=== PATIENT | male | born 1945 | race Caucasian/White ===

== ENCOUNTER 2021-07-13 07:18 | Emergency (ER) | payer MEDICARE ==
[~2021-07-13 07:18] MED LIST: AMIODARONE 150 MG/3 ML INJ IV ONE; CALCIUM CHLORIDE 1,000 MG/10 ML SYRINGE IV ONE; EPINEPHrine 1 MG/10 ML SYRINGE ONE; MAGNESIUM SULFATE 1 GM/2ML (4 MEQ/1ML) INJ ONE; SODIUM BICARB 8.4% 50 MEQ/50 ML SYRINGE IV ONE
[2021-07-13] MEDS ORDERED: NORepinephrine/NS 8 MG-250 ML 8 MG/250 ML INFUS..BTL IV ONE (07:29)
[2021-07-13] MEDS ORDERED: MINERAL OIL/PETROLATUM, WHITE OPHTH OINT 3.5 GM OU PRN (07:46)
[2021-07-13] MEDS ORDERED: DOPamine 800 MG/D5W 250ML 800 MG/250 ML BAG IV ONE (07:46)
[2021-07-13] MEDS ORDERED: LIP THERAPY VASELINE TP PRN (07:46)
[2021-07-13] MEDS ORDERED: SODIUM CHLORIDE 0.9% 1000 ML IV SOLN IV ONE (07:48)
[2021-07-13] MEDS ORDERED: CEFEPIME/NS 2 GM/100 ML 2 GM/100 ML BAG IV ONE (07:48)
[2021-07-13] MEDS ORDERED: NORepinephrine/NS 8 MG-250 ML 8 MG/250 ML INFUS..BTL IV SCH (08:00)
[2021-07-13] MEDS ORDERED: VANCOMYCIN PHARMACY TO DOSE IV SCH (08:00)
[2021-07-13] MEDS ORDERED: DOPamine 800 MG in DEXTROSE 5% IN WATER 230 ML IV ONE (08:00)
--- NOTE | 2021-07-13 08:04 | Emergency Department Report ---
ED CPR HPI - General Stated Complaint: CARDIAC ARREST Time Seen by Provider: 07/13/21 07:45 Source: family, EMS Limitations: Altered Mental Status - History of Present Illness Initial Comments: Chief complaint: Cardiac arrest HPI: This is a 75-year-old male with history of colon polyps and arthritis who presents in cardiac arrest via EMS. Daughter gave me history per phone. Phone #[phone]. Patient had flulike symptoms for the last week with fever shortness of breath cough. Self treated at home with Tylenol. EMS found patient in asystole without any respiratory effort. He was intubated with ETT. He was given 4 doses of epinephrine. Blood glucose 127 on scene. Patient received 45 minutes of ACLS resuscitation prior to arrival. ACLS resuscitation began approximately 630. Complaint: found unresponsive Place: home Bystander CPR Performed: No Initial Findings in the Field: unresponsive, no respirations, other rhythm (asystole) ROSC in the Field: No Associated Injuries: No Treatments Prior to Arrival: intubation, epinephrine mgs # (4 doses of epinephrine) - Related Data Previous Rx's Medication Instructions Recorded Last Taken Type Esomeprazole Magnesium [Nexium] 40 mg PO QDAY #30 capsule. 07/12/13 Unknown Rx Allergies Allergy/AdvReac Type Severity Reaction Status Date / Time No Known Allergies Allergy Unverified 07/12/13 10:40 ED Review of Systems ROS: Stated complaint: CARDIAC ARREST Other details as noted in HPI Comment: Unobtainable due to pts medical conditions (Cardiac arrest obtunded state) ED Past Medical Hx - Past Medical History Previous Medical History?: Yes Hx Arthritis: Yes Additional medical history: Colon polyps - Surgical History Past Surgical History?: Yes Additional Surgical History: Polypectomy - Social History Smoking Status: Former Smoker Substance Use Type: None - Medications Home Medications: Home Medications Medication Instructions Recorded Confirmed Last Taken Type Esomeprazole Magnesium [Nexium] 40 mg PO QDAY #30 capsule. 07/12/13 Unknown Rx ED Physical Exam - General Limitations: Altered Mental Status General appearance: obtunded, other (Lifeless no spontaneous movement) - Head Head exam: Present: atraumatic, normocephalic - Eye Pupils: Present: other (Fixed dilated pupils) - ENT ENT exam: Present: other (Pale mucosa ETT in place) - Neck Neck exam: Present: normal inspection, other (Positive JVD) - Respiratory Respiratory exam: Present: rales, rhonchi, other (Bilateral rales and rhonchi with ventilation through ETT) - Cardiovascular Cardiovascular Exam: Present: bradycardia, irregular rhythm. Absent: systolic murmur, diastolic murmur - GI/Abdominal GI/Abdominal exam: Present: soft, distended - Extremities Exam Extremities exam: Present: normal inspection - Neurological Exam Neurological exam: Present: other (Lifeless no response to pain) - Psychiatric Psychiatric exam: Present: other (Lifeless no spontaneous movement) - Skin Skin exam: Present: pallor, other (Very warm to touch) - Central Line Placement Right Femoral Consent Obtained: emergent situation Time Out Performed: Yes Patient Placed on Monitor/Pulse Ox: Yes MD Prep: mask, gown, gloves, other (Five-point barrier precautions used including cap glove mask gown drapes) Central Line Prep: Chlorhexidine scrub, sterile drapes applied Ultrasound Used for Placement: Yes Central Line Lumen Inserted: triple Reason for Insertion: Emergency Venous Access Bloods Obtained for Lab: Yes Central Line Position: good blood return, sutured in place with nyl, other (biopatch) Dressing Applied: Tegaderm Patient Tolerated Procedure: well ED Medical Decision Making - Medical Decision Making This is 75-year-old male who presents in cardiac arrest after 1 week of fever cough shortness of breath. Patient received 45 minutes of ACLS resuscitation via EMS. We continued ACLS resuscitation with epinephrine, calcium, serum bicarbonate. We did achieve return of spontaneous circulation. Patient continued to have bradycardia with profound hypotension. Patient had persistent hypotension with norepinephrine. Also ordered dopamine. Rhythm developed to asystole. Time of 0751. After approximately 55 minutes of ACLS resuscitation, further resuscitation deemed futile. Daughter notified per phone of patient's . Critical care attestation.: If time is entered above; I have spent that time in minutes in the direct care of this critically ill patient, excluding procedure time. ED Disposition Clinical Impression: Cardiac arrest Disposition: 20 Is pt being admited?: No Does the pt Need Aspirin: No Condition: Stable Time of Disposition: 07:51
[2021-07-13] MEDS ORDERED: FAMOTIDINE 20 MG/2 ML INJ IV SCH (10:00)
[2021-07-13] MEDS ORDERED: VANCOMYCIN 1,250 MG in SODIUM CHLORIDE 0.9% 250ML 250 ML IV ONE (12:00)
[2021-07-13] MEDS ORDERED: SENNOSIDES/DOCUSATE SODIUM 8.6/50 MG TAB FEEDTUBE SCH (12:00)
== END 2021-07-13 16:10 ==
LOC: ED 07:18
DX: I46.9 Cardiac arrest, cause unspecified (principal); M19.90 Unspecified osteoarthritis, unspecified site; Z98.890 Other specified postprocedural states; Z87.891 Personal history of nicotine dependence
CPT/HCPCS: 99285; J0171; J0282; J1265; J2354; J3370; J3475; J3490; J7040; J7050